=== PATIENT | female | born 1990 | race Caucasian/White ===

== ENCOUNTER 2023-04-06 08:57 | Emergency (ER) | payer MEDICAID, SELFPAY ==
[2023-04-06 09:02] VITALS: BP 109/64; PULSE 81; RESP 16; TEMP 36.7; O2SAT 99
--- NOTE | 2023-04-06 09:48 | ED.GENADULT ---
HPI - General Adult General Chief complaint: Unspecified Stated complaint: wants confirmed Time Seen by Provider: 04/06/23 09:03 History of Present Illness HPI narrative: 33 y/o female presents requesting a test. patient states her LMP was February 28 but was light and spotty. patient is a and had a + at home test. patient has more fatigue then normal. patient has intermittent abdominal pain but none currently. patient has slight nausea, no vomiting, no fever, and no urinary symptoms. patient court [facility] [place] [facility] and has an [facility] in April. Onset (ago): month(s) (1) Associated symptoms: malaise and nausea/vomiting Related Data Allergies Allergy/AdvReac Type Severity Reaction Status Date / Time No Known Allergies Allergy Verified 04/06/23 09:17 Review of Systems Review of Systems: All systems reviewed & are unremarkable except as noted in HPI and below Constitutional: Constitutional: Reports weakness Gastrointestinal: Gastrointestinal: Reports abdominal pain and Reports nausea Exam Const: General: cooperative, healthy appearing, comfortable and no acute distress Nutritional Appearance: well nourished Orientation/consciousness: patient oriented x3 Limitations: no limitations HENMT: Head: normal to inspection Ears: external ears normal Mouth: Yes Normal oral and palatal mucosa present Eyes: General: appearance normal, both eyes and all related structures Neck: Neck: normal visual inspection Chest: Chest palpation & inspection: normal inspection of the chest Resp: Effort & Inspection: normal respiratory effort Cardio: Rate: regular rate GI: Inspection: normal to inspection Back/Spine/Pelvis: Back: no CVA tenderness Skin: General skin exam: normal color Neuro: General: patient oriented x3 Extrem: General: normal to inspection Psych: Appearance: grossly normal Course Vital Signs Vital signs: Vital Signs Temperature 36.7 C 04/06/23 09:02 Pulse Rate 81 04/06/23 09:02 Respiratory Rate 16 04/06/23 09:02 Blood Pressure 109/64 04/06/23 09:02 Pulse Oximetry 99 04/06/23 09:02 Oxygen Delivery Room Air 04/06/23 09:02 Temperature 36.7 C 04/06/23 09:02 Pulse Rate 81 04/06/23 09:02 Respiratory Rate 16 04/06/23 09:02 Blood Pressure 109/64 04/06/23 09:02 Pulse Oximetry 99 04/06/23 09:02 Oxygen Delivery Room Air 04/06/23 09:02 Medical Decision Making MDM Narrative Medical decision making narrative: patient has positive test. patient has court worker appointment in April. patient has no abdominal pain or vaginal bleeding complaints. will start on abx per ua results. Vital Signs Vital Signs: Vital Signs Temperature 36.7 C 04/06/23 09:02 Pulse Rate 81 04/06/23 09:02 Respiratory Rate 16 04/06/23 09:02 Blood Pressure 109/64 04/06/23 09:02 Pulse Oximetry 99 04/06/23 09:02 Oxygen Delivery Room Air 04/06/23 09:02 Temperature 36.7 C 04/06/23 09:02 Pulse Rate 81 04/06/23 09:02 Respiratory Rate 16 04/06/23 09:02 Blood Pressure 109/64 04/06/23 09:02 Pulse Oximetry 99 04/06/23 09:02 Oxygen Delivery Room Air 04/06/23 09:02 Lab Data Labs: Lab Results 04/06/23 Range/Units 09:51 Urine Color Yellow (Yellow) Urine Appearance Turbid H (Clear) Urine pH 6.0 (5.0-9.0) Ur Specific [place] 1.025 (1.001-1.035) Urine Protein Trace (Negative) mg/dL Urine Glucose (UA) Negative (Negative) mg/dL Urine Ketones Negative (Negative) mg/dL Ur Blood (Man) Negative (Negative) Urine Nitrate Negative (Negative) Urine Bilirubin Negative (Negative) Urine Urobilinogen 1.0 (<2.0) mg/dL Add Ur Microanalysis Reviewed Leukocyte Esterase Rfl 3+ H (Negative) KAJAL/UL Urine RBC 6-10 H (0-2) /hpf Urine WBC >100 H /hpf Ur Squamous Epith Cells Many H (Few) /hpf Urine Bacteria 3+ H /hpf Urine Casts 0-2 UCG Bedside
[2023-04-06 10:31] LABS: Appearance Urine Turbid (Clear); Bacteria Urine 3+ /hpf; Bilirubin Urine Negative (Negative); Blood Urine Negative (Negative); Color Urine Yellow (Yellow); Glucose Urine UA Negative (Negative); Ketones Urine Negative (Negative); Leukocyte Esterase Ur 3+ LEU/UL (Negative); Need Manual Microscopic Reviewed; Nitrate Urine Negative (Negative); Non Pathogenic Casts 0-2; Protein Urine Trace mg/dL (Negative); Specific Grav Ur 1.025 (1.001-1.035); Squamous Epithelial Cell Urine Many /hpf (Few); WBC Urine >100 /hpf
[2023-04-06 10:34] LABS: Add Urine Microscopic? YES
[2023-04-06 11:00] VITALS: PULSE 84; RESP 20; O2SAT 100
== END 2023-04-06 11:01 | disposition home or self-care (01) ==
PROVIDERS: Emergency Provider Nurse Practitioner Family
DX: O23.41 Unspecified infection of urinary tract in pregnancy, first trimester (principal); N39.0 Urinary tract infection, site not specified; Z3A.00 Weeks of gestation of pregnancy not specified
CPT/HCPCS: 81001; 81025; 87086; 87088; 99283

== ENCOUNTER 2023-04-27 13:57 | Emergency (ER) | payer MEDICAID, SELFPAY ==
--- NOTE | ~2023-04-27 | US_ITS ---
EXAMINATION: US OB <= 14 weeks fetus DATE: 04/27/2023 17:17 INDICATION: Nausea and vomiting during first trimester TECHNIQUE: Real-time pelvic ultrasound utilizing transabdominal probe was performed. The jeremiah knight radiologist was not present for the study. COMPARISON: None. FINDINGS: The uterus measures 8.6 x 7.1 x 3.2 cm. There is an intrauterine gestational sac. A yolk sac and fet al pole are identified. The crown rump length measures 1.5 cm, which correlates with an estimated ges tational age of 8 weeks and 0 days. heart motion is identified measuring 178 beats per minute ( bpm) by M-mode Doppler. The right ovary measures 3.2 x 1.6 x 2.5 cm. The left ovary measures 4.0 x 2.4 x 3.4 cm. 1.7 cm anech oic likely corpus luteum cyst in the left ovary. There is no free fluid in the pelvis. IMPRESSION: 1. Single living fetus with heart rate of 178 bpm. 2. Gestational age by ultrasound of 8 weeks 0 day(s) +/- 5 day(s) with ultrasound estimated date of delivery (SUSANNA) of 12/17/2023. Reviewed, dictated and finalized at location A. [facility] NEUROPSYCHOLOGIST IMPRESSION: 1. Single living fetus with heart rate of 178 bpm. 2. Gestational age by ultrasound of 8 weeks 0 day(s) +/- 5 day(s) with ultraso und estimated date of delivery (SUSANNA) of 12/17/2023.
[2023-04-27 14:17] VITALS: BP 105/75; PULSE 102; RESP 20; TEMP 36.7; O2SAT 100
[2023-04-27 14:37] LABS: Basophils Percent Auto 0.1 % (0.2-1.2); Eosinophils Percent Auto 0.3 % (0-4.4); Hematocrit 38.3 % (37.0-47.0); Hemoglobin 13.5 g/dL (12.0-15.0); Immature Granulocyte Absolute 0.02 K/mm3 (0.00-0.031); Immature Granulocyte Percent A 0.3 % (0-0.5); Lymphocytes Absolute Auto 1.09 K/mm3 (0.9-3.2); Lymphocytes Percent Auto 16.1 % (18.3-44.2); Mean Corpuscular HGB Conc 35.2 g/dl (32-36); Mean Corpuscular Hemoglobin 29.3 pg (26-34); Mean Corpuscular Volume 83.3 fl (80-100); Mean Platelet Volume 9.8 fl (7.4-10.4); Monocytes Absolute Auto 0.4 K/mm3 (0.1-0.6); Monocytes Percent Auto 5.8 % (2.6-8.5); Neutrophils Absolute Auto 5.3 K/mm3 (1.3-6.7); Neutrophils Percent Auto 77.4 % (45.5-73.1); Platelet Count Result 212 k/mm3 (150-375); White Blood Count 6.8 K/mm3 (4.5-10.0)
[2023-04-27 14:47] LABS: Alanine Aminotransferase 22 U/L (6-35); Albumin Level 4.6 g/dL (3.5-5.1); Alkaline Phosphatase 62 U/L (38-126); Anion Gap 13 mmol/L (8-16); Aspartate Amino Transferase 24 U/L (14-36); Bilirubin,Total 1.1 mg/dL (0.2-1.3); Blood Urea Nitrogen 7 mg/dL (7-17); Calcium 9.3 mg/dL (8.4-10.2); Carbon Dioxide 23 mmol/L (22-30); Chloride 101 mmol/L (98-107); Estimated CRCL calculation 120 ml/min; Estimated Glomerular Filt Rate > 60; Glucose 87 mg/dL (65-110); Lipase 131 U/L (23-300); Potassium 3.7 mmol/L (3.4-5.0); Sodium 137 mmol/L (137-145)
[2023-04-27 15:31] LABS: Appearance Urine Cloudy (Clear); Bacteria Urine 1+ /hpf; Bilirubin Urine 1+ (Negative); Blood Urine Negative (Negative); Color Urine Dark Yellow (Yellow); Glucose Urine UA Negative (Negative); Ketones Urine 4+ mg/dL (Negative); Leukocyte Esterase Ur 2+ LEU/UL (Negative); Nitrate Urine Negative (Negative); Protein Urine 1+ mg/dL (Negative); Specific Grav Ur 1.033 (1.001-1.035); Squamous Epithelial Cell Urine Moderate /hpf (Few); WBC Urine 21-50 /hpf
[2023-04-27 15:43] LABS: Add Urine Microscopic? YES
--- NOTE | 2023-04-27 16:05 | ED.GENADULT ---
HPI - General Adult General Chief complaint: Nausea/Vomiting/Diarrhea Stated complaint: -dehydrated Time Seen by Provider: 04/27/23 15:41 History of Present Illness HPI narrative: 33-year-old female that is approximately 3 weeks presents to emergency department complaining of persistent nausea and vomiting. Patient was diagnosed with on 03/30 and diagnosed with a urinary tract infection a few days later. Patient did complete her antibiotics. Patient states after completing the antibiotics she had onset of worsening nausea and vomiting. Patient does report intermittent lower abdominal pain. Patient is resting comfortably emergency department denies any current nausea or abdominal pain. Related Data Allergies Allergy/AdvReac Type Severity Reaction Status Date / Time No Known Allergies Allergy Verified 04/27/23 13:58 Review of Systems Review of Systems: All systems reviewed & are unremarkable except as noted in HPI and below Exam Narrative: APPEARANCE: Well appearing, no pain, no distress, well-nourished. HEAD: normocephalic, atraumatic. EYES: PERRLA/EOMI, conjunctivae clear. NOSE: Normal no drainage EARS:TMS clear with good light reflex. THROAT: Pharynx clear, no exudate. NECK: Supple. No adenopathy, no masses. RESPIRATORY: Airway patent, respirations nonlabored. Clear to auscultation bilaterally, no rales, rhonchi, wheezing. CARDIOVASCULAR: Regular rate and rhythm without murmurs rubs or gallops. ABDOMINAL: suprapubic abdominal tenderness MUSCULOSKELETAL: Moves all extremities. Strength/ROM intact, No edema, No calf tenderness. NEURO: Alert. Cranial nerves II through XII intact. Good gait. Good coordination SKIN: Warm, dry. Normal Color Course Course Emergency Course: 33-year-old female presenting to the emergency department for evaluation of nausea vomiting any urinary symptoms. Patient is afebrile no ptosis has stable hemoglobin of 13.5. Chemistries are similar to her baseline. Patient's beta hCG is 209,000. Urine was concerning for urinary tract infection, patient was started on Rocephin and urine culture was ordered. Patient had been treated with Macrobid for her previous urinary tract infection. Ultrasound showed single living fetus with heart rate of 170 beats per minute and a gestational age of 8 weeks. Patient was encouraged close follow-up with primary care physician. All questions concerns were addressed. Vital Signs Vital signs: Vital Signs Temperature 98.1 F 04/27/23 14:17 Pulse Rate 102 H 04/27/23 14:17 Respiratory Rate 20 04/27/23 14:17 Blood Pressure 105/75 04/27/23 14:17 Pulse Oximetry 100 04/27/23 14:17 Oxygen Delivery Room Air 04/27/23 14:17 Temperature 98.1 F 04/27/23 14:17 Pulse Rate 74 04/27/23 18:59 Respiratory Rate 19 04/27/23 18:59 Blood Pressure 96/61 L 04/27/23 18:59 Pulse Oximetry 100 04/27/23 18:59 Oxygen Delivery Room Air 04/27/23 14:17 Medical Decision Making Vital Signs Vital Signs: Vital Signs Temperature 98.1 F 04/27/23 14:17 Pulse Rate 102 H 04/27/23 14:17 Respiratory Rate 20 04/27/23 14:17 Blood Pressure 105/75 04/27/23 14:17 Pulse Oximetry 100 04/27/23 14:17 Oxygen Delivery Room Air 04/27/23 14:17 Temperature 98.1 F 04/27/23 14:17 Pulse Rate 74 04/27/23 18:59 Respiratory Rate 19 04/27/23 18:59 Blood Pressure 96/61 L 04/27/23 18:59 Pulse Oximetry 100 04/27/23 18:59 Oxygen Delivery Room Air 04/27/23 14:17 Lab Data 04/27/23 14:29 04/27/23 14:29 Labs: Lab Results 04/27/23 04/27/23 Range/Units 14:29 15:10 WBC 6.8 (4.5-10.0) K/mm3 RBC 4.60 (4.2-5.4) M/mm3 Hgb 13.5 (12.0-15.0) g/dL Hct 38.3 (37.0-47.0) % MCV 83.3 (80-100) fl MCH 29.3 (26-34) pg MCHC 35.2 (32-36) g/dl RDW 12.0 (11.5-14.5) % Plt Count 212 (150-375) k/mm3 MPV 9.8 (7.4-10.4) fl Immature Gran % (Aut
--- NOTE | 2023-04-27 16:19 | PC.NURSE ---
US request Quant Beta HCG. Lab called.
[2023-04-27] MEDS: SODIUM CHLORIDE 0.9% IV 1,000 ML 999 ML IV CONT (18:00)
[2023-04-27] MEDS: ONDANSETRON INJ 4 MG/2 ML VIAL IV PUSH (18:05)
[2023-04-27 18:10] VITALS: BP 104/68; PULSE 74; RESP 16; O2SAT 100
[2023-04-27 18:59] VITALS: BP 96/61; PULSE 74; RESP 19; O2SAT 100
== END 2023-04-27 18:59 | disposition home or self-care (01) ==
PROVIDERS: Emergency Provider Emergency Medicine
DX: O23.41 Unspecified infection of urinary tract in pregnancy, first trimester (principal); N39.0 Urinary tract infection, site not specified; Z3A.01 Less than 8 weeks gestation of pregnancy
CPT/HCPCS: 36415; 76801; 80053; 81001; 81025; 83690; 84702; 85025; 87086; 87088; 96365; 96375; 99284; J0696; J2405; J7030

== ENCOUNTER 2023-07-15 13:53 | Emergency (ER) | payer OTHER, SELFPAY ==
[2023-07-15 13:54] VITALS: BP 112/70; PULSE 115; RESP 17; TEMP 36.5; O2SAT 100
--- NOTE | 2023-07-15 14:17 | ED.NAVMDI ---
HPI - Nausea/Vomiting/Diarrhea General Chief complaint: Nausea/Vomiting/Diarrhea Stated complaint: N/V Time Seen by Provider: 07/15/23 14:03 History of Present Illness HPI Narrative: Patient is a 33 year old female , approximately 20 weeks , follows with OBGYN at [facility] in [place] here with flu like symptoms. Patient notes for the last 6 days she has had nasal congestion, sinus pressure, headache. She has also had a mild non productive cough. Over the last 3 days she has had nausea, vomiting and difficulty keeping even water down. She notes a healthy thus far aside from bad morning sickness throughout the first trimester. She tried both zofran and reglan in her first trimester, is not taking anything for nausea at this time. No abdominal cramping, vaginal bleeding, leaking of fluid. Related Data Allergies Allergy/AdvReac Type Severity Reaction Status Date / Time No Known Allergies Allergy Verified 04/27/23 13:58 Review of Systems Review of Systems: All systems reviewed & are unremarkable except as noted in HPI and below Exam Narrative: GENERAL: Well-appearing, well-nourished, and in no acute distress. HEAD: Normocephalic, atraumatic. EYES: PERRLA and EOMI. ENT: Nares clear. Mucous membranes moist. NECK: Supple. CHEST: Clear to auscultation. No respiratory distress. HEART: Regular rate and rhythm. Normal peripheral pulses. ABDOMEN: Soft, gravid abdomen, nondistended. EXTREMITIES: Normal range of motion. No edema. SKIN: Warm, dry, no rash. NEURO: No focal deficits. Alert and oriented x3. PSYCH: Normal mood and affect. Course Course Emergency Course: Chart review performed, patient here with headache, sinus pressure, cough, sore throat x6 days. She is reportedly 20 weeks . Triage vitals showed normal blood pressure, tachycardia 115, otherwise unremarkable vital signs. Patient seen evaluated, nontoxic appearing. Differentials include viral syndrome, dehydration. Will do basic labs, IV fluids, antiemetics, Tylenol. Viral swab ordered. Risks and benefits discussed regarding chest x-ray, she does note that her shortness of breath and cough seemed to be mild and associated with her significant nasal drainage. Will forego x-ray at this time and re-evaluate based on lab work. Patient agreeable to workup and plan. CBC unremarkable, no leukocytosis. Low suspicion for bacterial infection. Electrolytes within normal limits, normal renal function. Mild elevation in her AST, ALT, bilirubin, believe this is likely reactive due to excessive amount of vomiting. In the context of having multiple other viral symptoms including some nasal congestion, cough, headache I have low suspicion that there is a biliary pathology underlying her disease process. COVID, influenza, RSV negative. Pending UA, re-evaluation. Anticipate discharge. Patient reevaluted, feeling quite a bit better, nausea has improved. Urine sample obtained, quite dark and concentrated. Will give additional 1L of IVF while awaiting urine results. Patient to perform PO challenge. Patient tolerating p.o., feeling quite a bit better at this time. UA consistent with UTI, will start on antibiotics. The results of pertinent diagnostic studies and exam findings were discussed. The patient?s provisional diagnosis and plan of care were discussed with the patient and present family. The patient and/or present family expressed understanding of the diagnosis and plan. The nurse was instructed to provide written instructions and appropriate follow-up information. The patient understands their need and responsibility to obtain additional follow-up as instructed. The risks of medications administered and prescribed were discussed with the patient and family present. Vital Signs Vital signs: Vital Signs Temperature 97.7 F 07/15/23 13:54 Pulse Rate 115 H 07/15/23 13:54 Respiratory Rate 07/15/23 13:54 Blood Pressure 112/70 07/15/23 13:54 Pu
[2023-07-15] MEDS: ACETAMINOPHEN 325 MG TABLET 650 MG PO (14:38)
[2023-07-15] MEDS: ONDANSETRON INJ 4 MG/2 ML VIAL IV PUSH (14:38)
[2023-07-15] MEDS: LACTATED RINGERS 1,000 ML 999 ML IV CONT ×2 (14:40→16:01)
[2023-07-15 14:47] LABS: Basophils Percent Auto 0.2 % (0.2-1.2); Eosinophils Percent Auto 0.1 % (0-4.4); Hematocrit 35.1 % (37.0-47.0); Hemoglobin 12.5 g/dL (12.0-15.0); Immature Granulocyte Absolute 0.03 K/mm3 (0.00-0.031); Immature Granulocyte Percent A 0.4 % (0-0.5); Lymphocytes Absolute Auto 1.14 K/mm3 (0.9-3.2); Lymphocytes Percent Auto 13.6 % (18.3-44.2); Mean Corpuscular HGB Conc 35.6 g/dl (32-36); Mean Corpuscular Hemoglobin 30.3 pg (26-34); Mean Corpuscular Volume 85.2 fl (80-100); Mean Platelet Volume 9.3 fl (7.4-10.4); Monocytes Absolute Auto 0.4 K/mm3 (0.1-0.6); Monocytes Percent Auto 4.3 % (2.6-8.5); Neutrophils Absolute Auto 6.8 K/mm3 (1.3-6.7); Neutrophils Percent Auto 81.4 % (45.5-73.1); Platelet Count Result 213 k/mm3 (150-375); Red Blood Count 4.12 M/mm3 (4.2-5.4); Red Cell Distribution Width 13.1 % (11.5-14.5); White Blood Count 8.4 K/mm3 (4.5-10.0)
[2023-07-15 14:49] LABS: Alanine Aminotransferase 40 U/L (6-35); Alkaline Phosphatase 111 U/L (38-126); Anion Gap 5 mmol/L (8-16); Aspartate Amino Transferase 55 U/L (14-36); Bilirubin,Total 1.6 mg/dL (0.2-1.3); Blood Urea Nitrogen 8 mg/dL (7-17); Calcium 9.1 mg/dL (8.4-10.2); Carbon Dioxide 26 mmol/L (22-30); Chloride 103 mmol/L (98-107); Estimated CRCL calculation 193 ml/min; Estimated Glomerular Filt Rate > 60; Glucose 87 mg/dL (65-110); Lipase 91 U/L (23-300); Potassium 3.5 mmol/L (3.4-5.0); Sodium 134 mmol/L (137-145)
[2023-07-15 15:16] LABS: Influenza A QL RT-PCR Negative (Negative); Influenza B QL RT-PCR Negative (Negative); RSV RNA, RT-PCR Negative (Negative); SARS-CoV-2 RNA PCR Negative (Negative)
[2023-07-15 16:02] LABS: Appearance Urine Cloudy (Clear); Bacteria Urine 2+ /hpf; Bilirubin Urine 2+ (Negative); Blood Urine Negative (Negative); Color Urine Dark Yellow (Yellow); Glucose Urine UA Negative (Negative); Ketones Urine 4+ mg/dL (Negative); Leukocyte Esterase Ur 1+ LEU/UL (Negative); Nitrate Urine Positive (Negative); Non Pathogenic Casts 0-2; Protein Urine 1+ mg/dL (Negative); RBC Urine 0-2 /hpf (0-2); Squamous Epithelial Cell Urine Many /hpf (Few)
[2023-07-15 16:04] LABS: Add Urine Microscopic? YES; Specific Grav Ur 1.032 (1.001-1.035)
[2023-07-15] MEDS: CEPHALEXIN 500 MG CAPSULE PO (16:26)
[2023-07-15 16:39] VITALS: BP 125/83; PULSE 96; RESP 16; TEMP 36.2; O2SAT 98
== END 2023-07-15 16:45 | disposition home or self-care (01) ==
PROVIDERS: Emergency Provider Student in an Organized Health Care Education/Training Program
DX: O98.512 Other viral diseases complicating pregnancy, second trimester (principal); B34.9 Viral infection, unspecified; O23.42 Unspecified infection of urinary tract in pregnancy, second trimester; N39.0 Urinary tract infection, site not specified; E86.0 Dehydration; Z3A.20 20 weeks gestation of pregnancy
CPT/HCPCS: 36415; 80053; 83690; 85025; 87086; 87088; 87637; 96361; 96374; 99284; A9270; J2405; J7120

== ENCOUNTER 2024-11-15 14:07 | Emergency (ER) | payer OTHER, SELFPAY ==
--- NOTE | ~2024-11-15 | XR_ITS ---
Left Shoulder Technique: AP and scapular Y views were obtained. Clinical History: Pain Findings: No fracture or dislocation is seen. Osseous alignment is anatomic. The glenohumeral and acr omioclavicular joint spaces are preserved. Soft tissues are unremarkable. Impression: Unremarkable left shoulder radiographs. Reviewed, dictated and finalized at [facility]. Impression: Unremarkable left shoulder radiographs.
--- NOTE | ~2024-11-15 | XR_ITS ---
Cervical Spine: AP, lateral, open-mouth views Clinical History: Pain Findings: The normal lordotic curve is maintained. The vertebral bodies and posterior elements appea r intact. The intervertebral disc spaces are well maintained. Pre-vertebral soft tissues are unremar kable. Impression: No significant abnormality is seen. Please note that CT imaging is significantly more sensitive for cervical spine trauma, and should be performed for further evaluation if clinically warranted. Reviewed, dictated and finalized at [facility]. Impression: No significant abnormality is seen. Please note that CT imaging is significant ly more sensitive for cervical spine trauma, and should be performed for furthe r evaluation if clinically warranted.
--- NOTE | ~2024-11-15 | XR_ITS ---
Right Shoulder Technique: AP and scapular Y views were obtained. Clinical History: Pain Findings: No fracture or dislocation is seen. Osseous alignment is anatomic. The glenohumeral and acr omioclavicular joint spaces are preserved. Soft tissues are unremarkable. Impression: Unremarkable right shoulder radiographs. Reviewed, dictated and finalized at [facility]. Impression: Unremarkable right shoulder radiographs.
--- OUTSIDE RECORDS SUMMARY | 2024-11-15 14:08 | XMS_ITS | Clinical Summary ---
Author Organization [facility] Address [address] [place] [id number] Care Team Providers Care Fitness Worker Name Role Phone None, Provider MD Primary Care Provider Unavaila ble Allergies No known active allergies Medications No known medications Family History Medical History Relation Comments None Father None Mother Relation Status Comments Father Alive Mother Alive Social History Tobacco Use Types Packs/Day Years Used Date Smoking Tobacco: Former Cigarettes Smokeless Tobacco: Never Alcohol Use Standard Drinks/Week Comments Yes 0 (1 standard drink = 0.6 oz pur e alcohol) rare Comments Yes Sex and Gender Information Value Date Recorded Sex Assigned at Not on file Legal Sex Female 5:46 PM CDT Gender Identity Not on file Sexual Orientation Not on file Last Filed Vital Signs Vital Sign Reading Time Taken Comments Blood Pressure 120/72 05/08/2023 5:00 PM PRINTED CIRCUIT DESIGNER Pulse 93 05/08/2023 4:27 PM PRINTED CIRCUIT DESIGNER Temperature 36.6 C (97.9 F) 05/08/2023 5:00 PM PRINTED CIRCUIT DESIGNER Respiratory Rate 18 05/08/2023 5:00 PM PRINTED CIRCUIT DESIGNER Oxygen Saturation 100% 05/08/2023 5:00 PM PRINTED CIRCUIT DESIGNER Inhaled Oxygen Concentration - - Weight 61.2 kg (135 lb) 05/08/2023 4:27 PM PRINTED CIRCUIT DESIGNER Height 165.1 cm (5' 5) 05/08/2023 4:27 PM PRINTED CIRCUIT DESIGNER Body Mass Index 22.47 05/08/2023 4:27 PM PRINTED CIRCUIT DESIGNER Plan of Treatment Health Maintenance Due Date Last Done Comments Cervical Cancer Screening Pa p Smear (Age 30 to 64) Every 3 Years 1990 Annual Physical 1993 Hepatitis C 01/08/2008 DTaP, Tdap and Td Vaccines ( 1 - Tdap) 2009 11/28/1995, 06/07/1995, 07/23/1991 Hepatitis B Vaccines (1 of 3 - 19+ 3-dose series) 2009 Cervical Cancer Screening Pa p with HPV Testing (Age 30 to 64) Every 5 Years 01/08/2020 Cervical Cancer Screening wi th HPV 01/08/2020 COVID-19 Vaccine (1 - 2023-2 5 season) 2023 RSV Immunization or 60+ Years (1 - 1-dose 75+ series) 2065 HPV Vaccines Completed 01/31/2007, 09/26/2006, 07/17/2006 Meningococcal B Vaccine Aged Out No l onger eligible based on patient's age to complete this topic Meningococcal Vaccine Aged Out No sam med eligible based on patient's age to complete this topic Pneumococcal Vaccine: Pediatrics (0 to 5 Years) and At-Risk Patients (6 to 49 Years) Aged Out No longer eligible b ased on patient's age to complete this topic RSV Immunizations Under 20 Months Aged Out No longer eligible b ased on patient's age to complete this topic Insurance Care Teams Fitness Worker Relationship Specialty Start Date End Date None, Provider, PCP - General 02/04/18
--- OUTSIDE RECORDS SUMMARY | 2024-11-15 14:08 | XMS_ITS | Clinical Summary ---
Author Organization [facility] at the [facility] Address [address] [place] [address] Care Team Providers Care Window Installation Subcontractor Name Role Phone No, Physician Primary Care Provider [phone] Allergies No known active allergies Medications vit 64-xnjt-fabbh-d nunez 27mg iron- 800 mcg-250 mg capsule Take by mouth Active butalbital-acet aminophen-caffe ine (ESGIC) 50-325-40 mg per tablet Take 1 tablet by mouth every 4 (four) hours as needed for headaches 30 tablet Active Additional Information Patient not taking.Reported on 02/22/2024 docusate sodium (COLACE) 100 mg capsuleIndicati ons:constipatio n,Stool Softener Take 1 capsule (100 mg total) by mouth 2 (two) times a day 60 capsule 1 4 Active Additional Information Patient not taking.Reported on 01/25/2024 ferrous sulfate 325 mg (65 mg of elemental iron) tabletIndicatio ns:Iron Deficiency Anemia Take 1 tablet (325 mg total) by mouth daily 30 tablet 11 4 12/13/19 Active Additional Information Patient not taking.Reported on 02/22/2024 ibuprofen (ADVIL,MOTRIN) 600 mg tabletIndicatio ns:Cramps Take 1 tablet (600 mg total) by mouth every 6 (six) hours as needed for pain 60 tablet 4 Active Additional Information Patient not taking.Reported on 02/22/2024 sertraline (ZOLOFT) 25 mg tabletIndicatio ns:Depression affecting , Take 1 tablet (25 mg total) by mouth daily 30 tablet 5 4 Active Hospital, Clinic, or Other Facility Administered Medication Ordered Dose Route Frequency Start Date End Date Status levonorgestreL (MIRENA) 21 mcg/24hr (up to 8 yrs) 52 mg IUDIndications:Preg larry Contraception intrauterine Continuous (implanted device) 02/22/2024 9 Active Active Problems Problem Noted Date Diagnosed Date care following vaginal delivery 12/10 Overview (12/12/2023): 12/11/23, PPD#1 (JF) S/p vaginal delivery complicated by PPH EBL 1548 cc, Hgb 11.8 > 11.4 > 10.8 > pending Received methergine, hemabate, TXA, misoprostol and OT x 2 Received 1 unit pRBC Had severe headache and N/V post delivery - resolved with IVF bolus, tylenol and compazine. This morning reports mild headache and pressure when standing, improves when laying down. Will give tylenol and caffeine. Anesthesia to evaluate B (-), Rubella Non immune Rhogam and MMR ordered Vital signs reviewed and normal Ambulating, tolerating PO, voiding spontaneously, lochia moderate, pain controlled MOF: Both formula and - desires but was delayed d/t complications MOC: Mirena IUD - plan for placement at 6 wk PP visit VTE ppx: The patient has the following MAJOR risk factors PPH (EBL >/=1000) requiring blood transfusion or procedure (D&C or IR) and the following MINOR risk factors parity >/=3. enoxaparin 40 mg daily ordered for VTE prophylaxis. Mood: stable Dispo: Desires discharge home tomorrow. 12/12/2023 PPD #2 (CZ) EBL 1548 cc, Hgb 11.8 > 11.4 > 10.8 > 9.8>9.1 Received methergine, hemabate, TXA, misoprostol and OT x 2 Received 1 unit pRBC Had severe headache and N/V post delivery - resolved with IVF bolus, tylenol and compazine. This morning reports mild headache and pressure when standing, improves when laying down. Will give tylenol and caffeine. Anesthesia to evaluate Headache persists and has worsened. Patient reports its worse when she is up moving around and resolves when she is laying flat. Anesthesia to bedside. Offered blood patch. Patient declines. Plan d/c and patient to present to [facility] if symptoms do not improve. B (-), Rubella Non immune Rhogam and MMR received Vital signs reviewed and normal Ambulating, tolerating PO, voiding spontaneously, lochia moderate, pain controlled MOF: Both formula and - desires but was delayed d/t complications MOC: Mirena IUD - plan for placement at 6 wk PP visit VTE ppx: The patient has the following MAJOR risk factors PPH (EBL >/=1000) requiring blood transfusion or procedure (D&C or IR) and the following MINOR risk factors parity >/=3. enoxaparin 40 mg daily ordered for VTE prophylaxis. Mood: stable Dispo: discharge home in stable condition Discharge teaching provided including PPD/PPA, pre-e, and bleeding/clotting precautions. Also educated to return if spinal headache symptoms do not resolve. Follow-up: for 6 week visit with Erika Third-stage hemorrhage 12/11/2023 Encounter for induction of labor 12/10/2023 Overview (12/12/2023): 12/10/2023, 0845 (): Rosalva Nguyen is a 33 y.o. female at 40w5d who is dated by L=11wk US and is being admitted for an elective induction of labor. Admit to L&D: Consents signed and placed in chart. Labs: B (-) s/p Rhogam on 09/09, Hgb: 11.8 Induction of labor with pitocin . -- plan for AROM after comfortable with epidural FWB: Continuous monitoring. tracing category I. ID: 3rd trimester HIV (>28 wga) negative on 09/09. GBS negative on 11/05 . RPR on admission: negative. History of genital HSV or HSV 1/2 seropositivity: No. Membrane Status: intact. Indications for UDS: none. Verbal consent obtained for UDS: Not indicated. MOF: Plans to breastfeed. Urine drug screen not indicated. Patient informed of results: N/A. MOC: Plans to use Mirena IUD for contraception. Pain management: Desires epidural. Post DVT prophylaxis: The patient has the following MAJOR risk factors none and the following MINOR risk factors none. SCDs will be ordered for VTE prophylaxis . 12/10/2023, 1200 (MICHAEL): VSS, AF Now s/p epidural and comfortable SVE and AROM with consent: 60/-2, large amount of meconium stained fluid FHT Cat 1 OT infusing at 10 mu/hr - titrate as able per protocol Rubella non-immune status, antepartum 05/18/2023 Supervision of other normal , antepartu m 05/16/2023 Resolved Problems Problem Noted Date Diagnosed Date Resolved Date IUD (intrauterine device) in place 04/14/2020 05/16/2023 Overview (04/14/2020): Placed 2018 Immunizations Immunization Administration Dates Next Due MMR 12/11/2023 Tdap 09/10/2023 Varicella 12/12/2023(Deferred: No longer n eeded) Surgical History Surgery Date Site/Laterality Comments CHOLECYSTECTOMY WISDOM TOOTH EXTRACTION Medical History Medical History Date Comments Asthma Family History * Patient is adopted Medical History Relation Name Comments Breast cancer Neg Hx Colon cancer Neg Hx Ovarian cancer Neg Hx Uterine cancer Neg Hx Social History Tobacco Use Types Packs/Day Years Used Date Smoking Tobacco: Never Smokeless Tobacco: Never Alcohol Use Standard Drinks/Week Comments Yes 0 (1 standard drink = 0.6 oz pur e alcohol) occas Social Connection and Isolation Panel [NHANES] A nswer Date Recorded In a typical week, how many times do you talk on the phone with family, friends, or neighbors? Three times a week 12/10/19 How often do you get togethe r with friends or relatives? Once a week 12/10/2023 How often do you attend chur ch or mu-ism services? 1 to 4 times per year 12/10/2023 Do you belong to any clubs o r organizations such as evangelical groups, unions, fraternal or athletic groups, or school groups? No 12/10/2023 How often do you attend meet ings of the clubs or organizations you belong to? 1 to 4 times per year 12/10/2023 Are you , , di vorced, , never , or living with a partner? 12/10/2023 AUDIT-C Answer Date Recorded Q1: How often do you have a drink containing alcohol? Never 12/10/2023 Q2: How many drinks containi ng alcohol do you have on a typical day when you are drinking? Patient does not drink Q3: How often do you have si x or more drinks on one occasion? Never 12/10/2023 Overall Financial Resource Strain (CARDIA) Answe r Date Recorded How hard is it for you to pa y for the very basics like food, housing, medical care, and heating? Not hard at all 12/10/2023 PHQ-2 Answer Date Recorded PHQ-2 Total Score (If total score is 3 or more points, staff should administer the PHQ-9) 0 12/10/2023 [facility] - Occupational Stress Questionnaire Answer Date Recorded Do you feel stress - tense, restless, nervous, or anxious, or unable to sleep at night because your mind is troubled all the time - these days? Not at all 12/10/2023 Exercise Vital Sign Answer Date Recorde d On average, how many days pe r week do you engage in moderate to strenuous exercise (like a brisk walk)? 2 days 12/10/2023 On average, how many minutes do you engage in exercise at this level? 20 min 12/10/2023 Hunger Vital Sign Answer Date Recorded Within the past 12 months, y ou worried that your food would run out before you got the money to buy more. Never true 12/10/19 24 Within the past 12 months, t he food you bought just didn't last and you didn't have money to get more. Never true 12/10/2023 PRAPARE - Transportation Answer Date Re corded In the past 12 months, has l ack of transportation kept you from medical appointments or from getting medications? No 11/28 In the past 12 months, has l ack of transportation kept you from meetings, work, or from getting things needed for daily living? No 12/10/2023 [place] Depression Scale Answer Date Recorded [place] Depression Scale Total 9 02/22/2024 The thought of harming myself has occurred to me . Never 02/22/2024 PHQ-9 Answer Date Recorded PHQ-9 Total Score 0 12/10/2023 Housing Stability Vital Sign Answer Suraj e Recorded In the last 12 months, was t here a time when you were not able to pay the mortgage or rent on time? No 12/10/2023 Number of Times Moved in the Last Year Not on fi le 12/10/2023 At any time in the past 12 m onths, were you homeless or living in a fpc (including now)? No 12/10/2023 Personal Safety Answer Date Recorded Have you ever been in or are you currently in a harmful physical or emotional relationship or is someone making you feel afraid or unsafe? Denies 12/10/2023 Comments No Sex and Gender Information Value Date Recorded Sex Assigned at Not on file Legal Sex Female 8:11 AM CHARGER OPERATOR Gender Identity Female 05/10/2023 9:26 AM CHARGER OPERATOR Sexual Orientation Not on file Obstetrics History Para Term AB IAB SAB Ectopic Multiple Livin g Live Births 3 3 3 0 3 3 Date Outcome GA Total Labor Labor/2nd/3rd Weight Sex Type Anes PTL Risa A1 A5 Name Clin 2012 Term 41w 0d 2.722 kg (6 lb) F Vag-Sp ont Epidur al N Livin g Complications:None Delivery Location:[facility] it 2016 Term 41w 0d 2.722 kg (6 lb) M Vag-Sp ont Epidur al N Livin g Complications:None Delivery Location:[facility] it 2023 Term 40w 5d 3h 37m 2h 10m/1h 01m/0h 26m 3.89 kg (8 lb 9.2 oz) F Vagina l Epidur al N Livin g 8 9 Autumn Houser, CNM Complications:None Delivery Location:[facility] Main C ampus ([facility]) Last Filed Vital Signs Vital Sign Reading Time Taken Comments Blood Pressure 94/60 02/22/2024 3:43 PM CDT Pulse 86 12/12/2023 9:45 AM CDT Temperature 36.4 C (97.6 F) 12/12/2023 9:45 AM CDT Respiratory Rate 18 12/12/2023 9:45 AM CDT Oxygen Saturation 98% 12/12/2023 9:45 AM CDT Inhaled Oxygen Concentration - - Weight 70.7 kg (155 lb 12.8 oz) 02/22/2024 3:43 PM CDT Height 165.1 cm (5' 5) 02/22/2024 3:43 PM CDT Body Mass Index 25.93 02/22/2024 3:43 PM CDT Plan of Treatment Health Maintenance Due Date Last Done Comments Varicella Vaccines (1 of 2 - 13+ 2-dose series) 2003 Cervical Cancer Screening 08/31/2023 08/30/2022, 05/2016 Regular Well Visit/Exam 18-64 08/31/2023 08/30/2022 Influenza Vaccine (Season Ended) 2024 Depression Screening 02/21/2025 02/22/2024, 12/10/2023, 12/10/2023 DTaP/Tdap/Td Vaccine (5 - Td or Tdap) 09/09/2033 09/10/2023, 11/28/1995, 06/07/1995, Additional history exists Hepatitis B Screening Completed 06/07/1995, 995 HPV Vaccines Completed 01/31/2007, 08/30, 07/17/2006 Hepatitis C Screening Completed 05/16/2023 , 04/11/2017, 08/22/2013 Pneumococcal vaccine <65 Aged Out No longer eligible based on patient's age to complete this topic Procedures Procedure Name Priority Date/Time Associated Diagnosis Comments HEPATITIS C ANTIBODY Routine 05/16/2023 11:18 AM CHARGER OPERATOR Encounter for supervision of other normal in first trimester PAP AND HIGH RISK HPV, REFLEX TO GENOTYPING Routine 08/30/2022 10:26 AM CDT Encounter for annual routine gynecological examination from Last 3 Months or Most Recently Relevant to Health Maintenance Results * Hepatitis C antibody Blood (05/16/2023 11:18 AM CHARGER OPERATOR) Hep C Ab Nonreactive Nonreactive ALBERT GRAFF Comment: Antibodies to HCV not detected. Does NOT exclude the possibility of recent exposure to HCV. Current interpretive data was last revised on 21 Interpretive Data Nonreactive: Antibodies to HCV not detected. Does NOT exclude the possibility of recent exposure to HCV. Equivocal: Equivocal for HCV antibodies. Supplemental molecular testing will be automatically performed to determine infection status in accordance with current CDC screening recommendations. Reactive: Positive for HCV antibodies. This may represent current or past HCV infection. Supplemental molecular testing will be automatically performed to determine current infection status in accordance with current CDC screening recommendations. Interpretive data was last revised on 2019. Blood 05/16/2023 11:1 8 AM CHARGER OPERATOR 05/16/2023 2:26 PM CHARGER OPERATOR us Good Pfeiffer MD LAB MICROBIOLOGY - GENERAL ORDERABLES Edited Result - Final ALBERT [address] [facility] Department [place] [address] * Pap and High Risk HPV, reflex to Genotyping (08/30/2022 10:26 AM CDT) Thin prep (Pap test) 08/30/2022 10:26 AM CDT 08/31/2022 10:26 AM CDT Narrative PATHOLOGY [facility] - 09/04/2022 1:42 PM CDT [facility] Department of Pathology [address] [place] [address] Final Report with Addendum Note to Patients: This report may contain a detailed description of human tissue sent by a health care provider to the laboratory for pathologic evaluation. The content of this report is essential for diagnosis and may provide important critical findings. This information may be unfamiliar to patients to review without a medical professional present. It is advised that the patient review this report in the presence of a health care provider who can answer questions and explain the details. Patient Name: ROSALVA NGUYEN Address: [address] [place] [id number] Gender: F : 1990 (Age: 32) Service: Location: [facility] #: [id number] Patient Type: [facility] SPECIMEN Taken: 08/30/2022 Received: 08/31/2022 Accessioned:: 09/01/2022 Reported: 09/04/2022 Physician(s): Clara Smith [facility] Diagnosis: SOURCE OF SPECIMEN SCREENING THIN PREP IMAGED PAP w/ HPV: STATEMENT OF ADEQUACY - Satisfactory for evaluation; endocervical/transformation zone component present GENERAL CATEGORIZATION: - Negative for intraepithelial lesion or malignancy KENTRELL Paul(ASCP) Report Electronically Reviewed and Signed Out By SAM PaulASCP) 09/04/2022 13:42:54Addenda: HPV Test Interpretation NEGATIVE for types 16, 18, 31, 33, 35, 39, 45, 51, 52, 56, 58, 59, 66 and 68. Test performed utilizing Gen-Probe Aptima assay. KENTRELL Rosales(ASCP)Report Electronically Reviewed and Signed Out By KENTRELL Rosales(ASCP) 09/04/2022 09:56:09 Specimen(s) Received: A: SCREENING THIN PREP IMAGED PAP w/ HPV Clinical History: Menstrual History: Clinical History: wnl 11/29/16 Contraceptive History: IUD The Pap test is a screening test used to aid in the detection of cervical cancer and its precursors. It should not be the sole means by which malignant and premalignant lesions are diagnosed. Both false negative and false positive results may occur. It also has poor sensitivity for the detection of endometrial lesions and should not be used to evaluate suspected endometrial abnormalities. For these reasons it is most important to obtain Pap tests at regular intervals. The performance characteristics of some immunohistochemical stains, fluorescence in-situ hybridization tests and immunophenotyping by flow cytometry cited in this report (if any) were determined by the Surgical Pathology Department at [facility] as part of an ongoing senior quality assurance engineer program and in compliance with federally mandated regulations drawn from the Clinical Laboratory Improvement Act of 1988 (CLIA '88). Some of these tests rely on the use of analyte specific reagents and are subject to specific labeling requirements by the US Food and Drug Administration. Such diagnostic tests may only be performed in a facility that is certified by the Department of Health and Human Services as a high complexity laboratory under CLIA '88. The FDA has determined that such clearance or approval is not necessary. This test is used for clinical purposes. It should not be regarded as investigational or for research. Nevertheless, federal rules concerning the medical use of analyte specific reagents require that the following disclaimer be attached to the report: This test was developed and its performance characteristics determined by the Surgical Pathology Department [facility]. It has not been cleared or approved by the U. S. Food and Drug Administration. Dai Cotton NP LAB CYTOLOGY ORDERABLES Final Re sult [facility] from Last 3 Months or Most Recently Relevant to Health Maintenance Insurance [facility] Advance Directives For more information, please contact: [phone] * Full Code (Latest Code Status on File) Date Activated Date Inactivated Comments 12/10/2023 5:31 PM 12/12/2023 7:26 PM * Full Code Date Activated Date Inactivated Comments 12/10/2023 8:50 AM 12/10/2023 5:31 PM Full CPR in case of cardiopulmonary arrest Care Teams Window Installation Subcontractor Relationship Specialty Start Date End Date No, Physician PCP - General 04/14/20
--- OUTSIDE RECORDS SUMMARY | 2024-11-15 14:08 | XMS_ITS | Referral Summary ---
Author Organization [facility] Address [address] [place] [address] Care Team Providers Care Creping Machine Operator Helper Name Role Phone No, Physician Primary Care Provider [phone] Allergies No known active allergies Medications vit 41-bepg-wjcth-d nunez 27mg iron- 800 mcg-250 mg capsule [...] labor 12/10/2023 Overview (12/12/2023): 12/10/2023, 0845 (): Mayte Nguyen is a 33 y.o. female at [...] and comfortable SVE and AROM with consent: /-2, large amount of meconium stained fluid FHT [...] 09/10/2023 Varicella 12/12/2023(Deferred: No longer n eeded) Social History Tobacco Use Types Packs/Day Years [...] or neighbors? Three times a week 12/10/19 24 How often do you get togethe r with friends or relatives? Once a week 12/10/2023 How often do you attend chur or synagogue services? 1 to 4 times per year 12/10/2023 Do you belong to any clubs o r organizations such as buddhist groups, unions, fraternal or athletic groups, or [...] staff should administer the PHQ-9) 0 12/10/2023 [facility] - Occupational Stress Questionnaire Answer Date Recorded [...] things needed for daily living? No 12/10/2023 [place] Depression Scale Answer Date Recorded [place] Depression Scale Total 9 02/22/2024 The thought [...] any time in the past 12 m [facility], were you homeless or living in a long-term (including now)? No 12/10/2023 Personal Safety Answer Date Recorded Have you ever been in or are you currently in a harmful physical or emotional relationship or is someone making you feel afraid or unsafe? Denies 12/10/2023 Comments No Sex and Gender Information Value Date Recorded Sex Assigned at Not on file Legal Sex Female 8:11 AM ENGINEER GEOPHYSICAL LABORATORY Gender Identity Female 05/10/2023 9:26 AM ENGINEER GEOPHYSICAL LABORATORY Sexual Orientation Not on file Last Filed [...] 02/22/2024 3:43 PM CDT Plan of Treatment Not on file Procedures Procedure Name Priority Date/Time Associated Diagnosis Comments HEPATITIS C ANTIBODY Routine 05/16/2023 11:18 AM ENGINEER GEOPHYSICAL LABORATORY Encounter for supervision of other normal in first trimester PAP AND HIGH RISK HPV, REFLEX TO GENOTYPING Routine 08/30/2022 10:26 AM CDT Encounter for annual routine gynecological examination from Last 3 Months or Most Recently Relevant to Health Maintenance Results * Hepatitis C antibody Blood (05/16/2023 11:18 AM ENGINEER GEOPHYSICAL LABORATORY) Hep C Ab Nonreactive Nonreactive ALBERT GRAFF [...] on 2019. Blood 05/16/2023 11:1 8 AM ENGINEER GEOPHYSICAL LABORATORY 05/16/2023 2:26 PM ENGINEER GEOPHYSICAL LABORATORY us Good Pfeiffer MD LAB MICROBIOLOGY - GENERAL ORDERABLES Edited Result - Final ALBERT [address] [facility] [place] [address] * Pap and High Risk HPV, reflex to Genotyping (08/30/2022 10:26 AM CDT) Thin prep (Pap test) 08/30/2022 10:26 AM CDT 08/31/2022 10:26 AM CDT Narrative PATHOLOGY [facility] - 09/04/2022 1:42 PM CDT [facility] Department of Pathology [address] [place], [place] [id number] Final Report with Addendum Note to Patients: [...] questions and explain the details. Patient Name: MAYTE NGUYEN Address: [address] [place] [address] Gender: F : 1990 (Age: 32) Service: Location: N : [id number] [facility] #: [id number] Patient Type: [facility] SPECIMEN Taken: 08/30/2022 Received: 08/31/2022 Accessioned:: 09/01/2022 Reported: 09/04/2022 Physician(s): Clara Smith [facility] Diagnosis: SOURCE OF SPECIMEN SCREENING THIN PREP [...] 59, 66 and 68. Test performed utilizing Gen-[employer] Aptima assay. KENTRELL Rosales(ASCP)Report Electronically Reviewed and Signed Out By SAM RosalesASCP) 09/04/2022 09:56:09 Specimen(s) Received: A: SCREENING THIN [...] determined by the Surgical Pathology Department at [facility] as part of an ongoing quality assurance project manager program and in compliance with federally mandated [...] characteristics determined by the Surgical Pathology Department [facility]. It has not been cleared or approved by the U. S. Food and Drug Administration. Dai Cotton NP LAB CYTOLOGY ORDERABLES Final Re sult [facility] from Last 3 Months or Most Recently Relevant to Health Maintenance Insurance [facility] Advance Directives For more information, please contact: [phone] * Full Code (Latest Code Status on File) Date Activated Date Inactivated Comments 12/10/2023 5:31 PM 12/12/2023 7:26 PM * Full Code Date Activated Date Inactivated Comments 12/10/2023 8:50 AM 12/10/2023 5:31 PM Full CPR in case of cardiopulmonary arrest Care Teams Creping Machine Operator Helper Relationship Specialty Start Date End Date No, Physician PCP - General 04/14/20
--- OUTSIDE RECORDS SUMMARY | 2024-11-15 14:08 | XMS_ITS | Clinical Summary ---
Author Organization [facility] Address [address] [place] [address] Care Team Providers Care Sulfate Drier Machine Operator Name Role Phone Unavailable Primary Care Provider Unavailabl e Source Comments [facility],non-owned Affiliates and Associated Physician Practices is amultiple site organization consisting of ambulatory clinics and hospital sitesin [place], [place], [place] and [place]. This disclosure is being madepursuant to the Care Everywhere program and may not contain all information available regarding this patient. Last updated 18.[facility] Active Problems Problem Noted Date Diagnosed Date Encounter for ultrasound to check growth 1 Social History Tobacco Use Types Packs/Day Years Used Date Smoking Tobacco: Never Assessed Comments No Sex and Gender Information Value Date Recorded Sex Assigned at Not on file Legal Sex Female 5:25 AM FLITCH HANGER Gender Identity Not on file Sexual Orientation Not on file Plan of Treatment Health Maintenance Due Date Last Done Comments HIV SCREENING 2005 HEPATITIS C SCREENING 01/03/2008 DTAP/TDAP/TD VACCINES (1 - Tdap) 2009 HEPATITIS B VACCINE (1 of 3 - 19+ 3-dose series) 2009 HPV VACCINE (1 - 3-dose SCDM series) 2017 COVID-19 VACCINE (2023-2 5 season) 2023 DEPRESSION SCREENING 04/30/2024 INFLUENZA VACCINE (#1) 2024 ZOSTER VACCINE (1 of 2) 01/08/2040 HIB VACCINE Aged Out No longer eligi ble based on patient's age to complete this topic MENINGOCOCCAL (Group B) VACC INE SHARED DECISION-MAKING Aged Out No longer eligibl e based on patient's age to complete this topic MENINGOCOCCAL GROUPS A/C/Y/W VACCINE Aged Out No longer eligible b ased on patient's age to complete this topic PNEUMOCOCCAL VACCINE Aged Out No long er eligible based on patient's age to complete this topic Insurance [facility]
--- OUTSIDE RECORDS SUMMARY | 2024-11-15 14:08 | XMS_ITS | Encounter Summary ---
Author Organization [facility] Address [address] [place] [address] Care Team Providers Care Broke Man Name Role Phone Md Generic Radha URENA Primary Care Provider Unavailable Md Generic Radha URENA Primary Care Provider Unavailable Kendra Urena MD Primary Care Provider Unavailable None, Provider Primary Care Provider Unavaila ble Encounter Details Date Type Department Care Team (Late st Contact Info) Description 08/22/2016 Abstract [facility] CONVERSION [address] [place] [address] Kendra Urena MD Social History Tobacco Use Types Packs/Day Years Used Date Smoking Tobacco: Never Assessed Comments Unknown Sex and Gender Information Value Date Recorded Sex Assigned at Not on file Legal Sex Female 5:46 PM CDT Gender Identity Not on file Sexual Orientation Not on file documented as of this encounter Plan of Treatment Not on file documented as of this encounter Visit Diagnoses Not on filedocumented in this encounter Care Teams Broke Man Relationship Specialty Start Date End Date Kendra Urena MD PCP - General 11/08/16 Kendra Urena MD PCP - General 09/26/16 Kendra Urena MD PCP - General 07/24/13 None, ProviderMD PCP - General 02/04/18 documented as of this encounter
[2024-11-15 14:36] VITALS: BP 121/83; PULSE 76; RESP 20; TEMP 36.5; O2SAT 97
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
--- OUTSIDE RECORDS SUMMARY | 2024-11-15 16:15 | XMS_ITS | Clinical Summary ---
Author Organization [facility] Address [address] [place] [address] Care Team Providers Care Clock And Watch Hands Dipper Name Role Phone Unavailable Primary Care Provider Unavailabl e Source Comments [facility],non-owned Affiliates and Associated Physician Practices is amultiple site organization consisting of ambulatory clinics and hospital sitesin [place], [place], [place] and [place]. This disclosure is being madepursuant to the Care Everywhere program and may not contain all information available regarding this patient. Last updated 18.[facility] Active Problems Problem Noted Date Diagnosed Date Encounter for ultrasound to check growth 1 Social History Tobacco Use Types Packs/Day Years Used Date Smoking Tobacco: Never Assessed Comments No Sex and Gender Information Value Date Recorded Sex Assigned at Not on file Legal Sex Female 5:25 AM WOOD GLUER Gender Identity Not on file Sexual Orientation [...] patient's age to complete this topic Insurance [facility]
--- OUTSIDE RECORDS SUMMARY | 2024-11-15 16:15 | XMS_ITS | Encounter Summary ---
Author Organization [facility] Address [address] [place] [address] Care Team Providers Care Patient Centered Care Specialist Name Role Phone Md Generic Radha URENA Primary Care Provider Unavailable Md Generic Radha URENA Primary Care Provider Unavailable Kendra Urena MD Primary Care Provider Unavailable None, Provider Primary Care Provider Unavaila ble Encounter Details Date Type Department Care Team (Late st Contact Info) Description 08/22/2016 Abstract [facility] CONVERSION [address] [place] [address] Kendra Urena MD Social History Tobacco Use [...] on filedocumented in this encounter Care Teams Patient Centered Care Specialist Relationship Specialty Start Date End Date Kendra Urena MD PCP - General 11/08/16 Kendra Urena MD PCP - General 09/26/16 Kendra Urena MD PCP - General 07/24/13 None, ProviderMD PCP - General 02/04/18 documented as of this encounter
--- OUTSIDE RECORDS SUMMARY | 2024-11-15 16:15 | XMS_ITS | Clinical Summary ---
Author Organization [facility] Address [address] [place] [address] Care Team Providers Care Leather Dresser Name Role Phone None, Provider MD Primary [...] Comments Blood Pressure 120/72 05/08/2023 5:00 PM SENIOR DIGITAL DESIGNER Pulse 93 05/08/2023 4:27 PM SENIOR DIGITAL DESIGNER Temperature 36.6 C (97.9 F) 05/08/2023 5:00 PM SENIOR DIGITAL DESIGNER Respiratory Rate 18 05/08/2023 5:00 PM SENIOR DIGITAL DESIGNER Oxygen Saturation 100% 05/08/2023 5:00 PM SENIOR DIGITAL DESIGNER Inhaled Oxygen Concentration - - Weight 61.2 kg (135 lb) 05/08/2023 4:27 PM SENIOR DIGITAL DESIGNER Height 165.1 cm (5' 5) 05/08/2023 4:27 PM SENIOR DIGITAL DESIGNER Body Mass Index 22.47 05/08/2023 4:27 PM SENIOR DIGITAL DESIGNER Plan of Treatment Health Maintenance Due [...] to complete this topic Insurance Care Teams Leather Dresser Relationship Specialty Start Date End Date None, Provider, PCP - General 02/04/18
--- OUTSIDE RECORDS SUMMARY | 2024-11-15 16:15 | XMS_ITS | Referral Summary ---
Author Organization [facility] Address [address] [place] [address] Care Team Providers Care Culinary Director Name Role Phone No, Physician Primary Care Provider [phone] Allergies No known active allergies Medications vit 77-bvcg-mnuia-d nunez 27mg iron- 800 mcg-250 mg capsule [...] How often do you attend chur or hinduism services? 1 to 4 times per year 12/10/2023 Do you belong to any clubs o r organizations such as religion groups, unions, fraternal or athletic groups, or [...] staff should administer the PHQ-9) 0 12/10/2023 [facility] - Occupational Stress Questionnaire Answer Date Recorded [...] things needed for daily living? No 12/10/2023 Rumsey Depression Scale Answer Date Recorded Rumsey Depression Scale Total 9 02/22/2024 The thought [...] any time in the past 12 m [facility], were you homeless or living in a snf (including now)? No 12/10/2023 Personal Safety Answer Date Recorded Have you ever been in or are you currently in a harmful physical or emotional relationship or is someone making you feel afraid or unsafe? Denies 12/10/2023 Comments No Sex and Gender Information Value Date Recorded Sex Assigned at Not on file Legal Sex Female 8:11 AM PLATING AND POINT ASSEMBLY SUPERVISOR Gender Identity Female 05/10/2023 9:26 AM PLATING AND POINT ASSEMBLY SUPERVISOR Sexual Orientation Not on file Last Filed [...] HEPATITIS C ANTIBODY Routine 05/16/2023 11:18 AM PLATING AND POINT ASSEMBLY SUPERVISOR Encounter for supervision of other normal in first trimester PAP AND HIGH RISK HPV, REFLEX TO GENOTYPING Routine 08/30/2022 10:26 AM CDT Encounter for annual routine gynecological examination from Last 3 Months or Most Recently Relevant to Health Maintenance Results * Hepatitis C antibody Blood (05/16/2023 11:18 AM PLATING AND POINT ASSEMBLY SUPERVISOR) Hep C Ab Nonreactive Nonreactive ALBERT GRAFF [...] on 2019. Blood 05/16/2023 11:1 8 AM PLATING AND POINT ASSEMBLY SUPERVISOR 05/16/2023 2:26 PM PLATING AND POINT ASSEMBLY SUPERVISOR us Good Pfeiffer MD LAB MICROBIOLOGY - GENERAL ORDERABLES Edited Result - Final ALBERT [address] [facility] Department [place] [address] * Pap and High Risk HPV, reflex to Genotyping (08/30/2022 10:26 AM CDT) Thin prep (Pap test) 08/30/2022 10:26 AM CDT 08/31/2022 10:26 AM CDT Narrative PATHOLOGY [facility] - 09/04/2022 1:42 PM CDT [facility] Department of Pathology [address] [place], [place] [id number] Final Report with Addendum Note to Patients: [...] the details. Patient Name: MAYTE NGUYEN Address: [address] [place] [address] Gender: F : 1990 (Age: 32) Service: Location: N : [id number] [facility] #: [id number] Patient Type: [facility] SPECIMEN Taken: 08/30/2022 Received: 08/31/2022 Accessioned:: 09/01/2022 Reported: 09/04/2022 Physician(s): Clara Smith [facility] Diagnosis: SOURCE OF SPECIMEN SCREENING THIN PREP [...] 59, 66 and 68. Test performed utilizing [employer] Aptima assay. KENTRELL Rosales(ASCP)Report Electronically Reviewed and [...] determined by the Surgical Pathology Department at [facility] as part of an ongoing quality assurance representative program and in compliance with federally mandated [...] characteristics determined by the Surgical Pathology Department [facility]. It has not been cleared or approved by the U. S. Food and Drug Administration. Dai Cotton NP LAB CYTOLOGY ORDERABLES Final Re sult [facility] from Last 3 Months or Most Recently Relevant to Health Maintenance Insurance [facility] Advance Directives For more information, please contact: [phone] * Full Code (Latest Code Status on File) Date Activated Date Inactivated Comments 12/10/2023 5:31 PM 12/12/2023 7:26 PM * Full Code Date Activated Date Inactivated Comments 12/10/2023 8:50 AM 12/10/2023 5:31 PM Full CPR in case of cardiopulmonary arrest Care Teams Culinary Director Relationship Specialty Start Date End Date No, Physician PCP - General 04/14/20
--- OUTSIDE RECORDS SUMMARY | 2024-11-15 16:15 | XMS_ITS | Clinical Summary ---
Author Organization [facility] Address [address] [place] [address] Care Team Providers Care Electrical Software Engineer Name Role Phone No, Physician Primary Care Provider [phone] Allergies No known active allergies Medications vit 67-qcbo-izwqq-d nunez 27mg iron- 800 mcg-250 mg capsule [...] often do you attend chur ch or catholic services? 1 to 4 times per year 12/10/2023 Do you belong to any clubs o r organizations such as mu-ism groups, unions, fraternal or athletic groups, or [...] staff should administer the PHQ-9) 0 12/10/2023 [facility] - [...] things needed for daily living? No 12/10/2023 Pilgrim Depression Scale Answer Date Recorded Pilgrim Depression Scale Total 9 02/22/2024 The thought [...] were you homeless or living in a correction (including now)? No 12/10/2023 Personal Safety Answer Date Recorded Have you ever been in or are you currently in a harmful physical or emotional relationship or is someone making you feel afraid or unsafe? Denies 12/10/2023 Comments No Sex and Gender Information Value Date Recorded Sex Assigned at Not on file Legal Sex Female 8:11 AM PARKING LOT CHAUFFEUR Gender Identity Female 05/10/2023 9:26 AM PARKING LOT CHAUFFEUR Sexual Orientation Not on file Obstetrics History Para Term AB IAB SAB Ectopic Multiple Livin g Live Births 3 3 3 0 3 3 Date Outcome GA Total Labor Labor/2nd/3rd Weight Sex Type Anes PTL Risa A1 A5 Name Clin 2012 Term 41w 0d 2.722 kg (6 lb) F Vag-Sp ont Epidur al N Livin g Complications:None Delivery Location:[facility] it 2016 Term 41w 0d 2.722 kg (6 lb) M Vag-Sp ont Epidur al N Livin g Complications:None Delivery Location:[facility] it 2023 Term 40w 5d 3h 37m 2h 10m/1h 01m/0h 26m 3.89 kg (8 lb 9.2 oz) F Vagina l Epidur al N Livin g 8 9 Autumn Houser, CNM Complications:None Delivery Location:[facility] Main C [facility] ([facility]) Last Filed Vital Signs Vital [...] HEPATITIS C ANTIBODY Routine 05/16/2023 11:18 AM PARKING LOT CHAUFFEUR Encounter for supervision of other normal in first trimester PAP AND HIGH RISK HPV, REFLEX TO GENOTYPING Routine 08/30/2022 10:26 AM CDT Encounter for annual routine gynecological examination from Last 3 Months or Most Recently Relevant to Health Maintenance Results * Hepatitis C antibody Blood (05/16/2023 11:18 AM PARKING LOT CHAUFFEUR) Hep C Ab Nonreactive Nonreactive ALBERT GRAFF [...] on 2019. Blood 05/16/2023 11:1 8 AM PARKING LOT CHAUFFEUR 05/16/2023 2:26 PM PARKING LOT CHAUFFEUR us Good Pfeiffer MD LAB MICROBIOLOGY - GENERAL ORDERABLES Edited Result - Final ALBERT [address] [facility] Department [place] [address] * Pap and High Risk HPV, reflex to Genotyping (08/30/2022 10:26 AM CDT) Thin prep (Pap test) 08/30/2022 10:26 AM CDT 08/31/2022 10:26 AM CDT Narrative PATHOLOGY [facility] - 09/04/2022 1:42 PM CDT [facility] Department of Pathology [address] [place] [address] Final Report with Addendum Note to Patients: [...] the details. Patient Name: ROSALVA NGUYEN Address: [address] [place] [address] Gender: F : 1990 (Age: 32) Service: Location: [facility] #: [id number] Patient Type: [facility] SPECIMEN Taken: 08/30/2022 Received: 08/31/2022 Accessioned:: 09/01/2022 Reported: 09/04/2022 Physician(s): Clara Smith [facility] Diagnosis: SOURCE OF SPECIMEN SCREENING [...] determined by the Surgical Pathology Department at [facility] as part of an ongoing quality control manager program and in compliance with federally [...] characteristics determined by the Surgical Pathology Department [facility]. It has not been cleared or approved by the U. S. Food and Drug Administration. Dai Cotton NP LAB CYTOLOGY ORDERABLES Final Re sult [facility] from Last 3 Months or Most Recently Relevant to Health Maintenance Insurance [facility] Advance Directives For more information, please contact: [phone] * Full Code (Latest Code Status on File) Date Activated Date Inactivated Comments 12/10/2023 5:31 PM 12/12/2023 7:26 PM * Full Code Date Activated Date Inactivated Comments 12/10/2023 8:50 AM 12/10/2023 5:31 PM Full CPR in case of cardiopulmonary arrest Care Teams Electrical Software Engineer Relationship Specialty Start Date End Date No, Physician PCP - General 04/14/20
[2024-11-15] MEDS: IBUPROFEN 400 MG TABLET 800 MG PO (17:03)
[2024-11-15] MEDS: ACETAMINOPHEN 500 MG TABLET 1000 MG PO (17:03)
== END 2024-11-15 17:36 | disposition home or self-care (01) ==
PROVIDERS: Emergency Provider Registered Nurse Emergency
DX: S40.012A Contusion of left shoulder, initial encounter (principal); S19.9XXA Unspecified injury of neck, initial encounter; S49.91XA Unspecified injury of right shoulder and upper arm, initial encounter; V48.5XXA Car driver injured in noncollision transport accident in traffic accident, initial encounter
CPT/HCPCS: 72040; 73030; 99284; A9270